=== PATIENT | female | born 1945 | race Caucasian/White ===

== ENCOUNTER 2022-04-21 19:48 | Emergency (ER) | payer OTHER ==
[2022-04-21] MEDS ORDERED: ACETAMINOPHEN 325 MG TABLET (FP) PO ONE (20:04)
[2022-04-21] MEDS ORDERED: ACETAMINOPHEN 325 MG TABLET (FP) ONE (20:04)
[2022-04-21 20:12] VITALS: BP 156/70; PULSE 64; TEMP 97.8; BMI 23.4
== END 2022-04-21 21:09 | disposition home or self-care (01) ==
LOC: FER 19:48
DX: M54.89 Other dorsalgia (principal)
CPT/HCPCS: 99283-25

== ENCOUNTER 2022-11-27 06:08 | Emergency (ER) | payer OTHER ==
[2022-11-27 06:19] VITALS: BP 157/64; PULSE 72; RESP 16; TEMP 98.6; BMI 22.8
== END 2022-11-27 09:50 | disposition home or self-care (01) ==
LOC: FER 06:08 → SUPCPDRO 06:08 → FER 09:50
DX: M79.604 Pain in right leg (principal); W19.XXXA Unspecified fall, initial encounter
CPT/HCPCS: 99282-25

== ENCOUNTER 2022-12-14 00:05 | Emergency (ER) | payer OTHER ==
[2022-12-14 00:31] VITALS: TEMP 97.9; BMI 24.5
[2022-12-14 06:53] VITALS: BP 153/68; PULSE 73; RESP 16
== END 2022-12-14 09:15 ==
LOC: FER 00:05
DX: Z04.3 Encounter for examination and observation following other accident (principal)
CPT/HCPCS: 70450-TC; 72125-TC; 99284-25

== ENCOUNTER 2022-12-27 10:08 | Emergency (ER) | payer OTHER ==
[2022-12-27 10:29] VITALS: BP 138/72; PULSE 70; RESP 16; TEMP 98.6; BMI 24.5
[2022-12-27 12:08] LABS: EPITHELIAL CELLS FEW /hpf
== END 2022-12-27 13:09 | disposition home or self-care (01) ==
LOC: SUPCPDRO 10:08 → FER 10:08
DX: K59.00 Constipation, unspecified (principal)
CPT/HCPCS: 74018-TC-FY; 81003; 81015; 87086; 87186; 99284-25

== ENCOUNTER 2022-12-29 01:51 | Emergency (ER) | payer OTHER ==
[2022-12-29 02:02] VITALS: TEMP 97.7; BMI 28.3
[2022-12-29 06:41] VITALS: PULSE 88; RESP 17
[2022-12-29 06:52] VITALS: BP 152/82
== END 2022-12-29 08:40 | disposition home or self-care (01) ==
LOC: FER 01:51
DX: Z04.3 Encounter for examination and observation following other accident (principal)
CPT/HCPCS: 70450-TC; 72125-TC; 99284-25

== ENCOUNTER 2024-05-03 11:00 | Inpatient (IN) | payer OTHER ==
[2024-05-03 11:48] VITALS: BMI 33.0
[2024-05-03 13:02] LABS: INR 0.91 (0.83-1.09); PROTHROMBIN TIME (PATIENT) 10.4 SEC (9.7-13.0)
[2024-05-03 13:04] LABS: ACTIVATED PTT 33.1 SECONDS (25.2-36.5)
[2024-05-03 13:05] LABS: HEMATOCRIT 38.5 % (32.4-45.2); HEMOGLOBIN 12.3 G/dL (10.7-15.3); MCH 30.6 pg (25.7-33.7); MCHC 32.1 g/dl (32.0-36.0); MEAN CELL VOLUME 95.5 fl (80-96); RBC 4.03 10^6/uL (3.60-5.2); RDW 14.8 % (11.6-15.6); WHITE BLOOD COUNT 8.3 10^3/uL (4.0-10.8)
[2024-05-03 13:11] LABS: ALBUMIN 4.2 g/dl (3.4-5.0); BILIRUBIN,TOTAL 1.5 mg/dl (0.2-1); CALCIUM 9.5 mg/dl (8.5-10.1); CREATININE 0.8 mg/dl (0.6-1.3); POTASSIUM 3.8 mmol/L (3.5-5.1); TOT PROT 6.8 g/dl (6.4-8.2)
[2024-05-03 13:24] LABS: PLATELET ESTIMATE ADEQUATE
[2024-05-03] MEDS: ACETAMINOPHEN 1000 MG/100 ML BAG IVPB ONE (14:25)
[2024-05-03] MEDS ORDERED: ACETAMINOPHEN INJECTION 100 ML IVPB ONE (14:26)
[2024-05-03] MEDS: OLANZapine 5 MG TABLET PO SCH (21:28)
[2024-05-03] MEDS: ACETAMINOPHEN 1000 MG/100 ML BAG IVPB PRN (21:28)
[2024-05-03] MEDS: ROSUVASTATIN CA 5 MG TABLET PO SCH (21:28)
[2024-05-03] MEDS ORDERED: MEMANTINE HCL 5 MG TABLET (UD) PO SCH (22:00)
[2024-05-04] MEDS: LEVOTHYROXINE NA 100 MCG TABLET (FP) PO SCH (06:27)
[2024-05-04 08:10] LABS: INR 1.03 (0.83-1.09); PROTHROMBIN TIME (PATIENT) 11.7 SEC (9.7-13.0)
[2024-05-04 08:51] LABS: HEMATOCRIT 35.9 % (32.4-45.2); HEMOGLOBIN 11.4 G/dL (10.7-15.3); MCH 30.1 pg (25.7-33.7); MCHC 31.7 g/dl (32.0-36.0); MEAN PLT VOLUME 9.5 fl (7.5-11.1); PLATELET COUNT 171.4 10^3/uL (134-434); RBC 3.78 10^6/uL (3.60-5.2); RDW 14.4 % (11.6-15.6); WHITE BLOOD COUNT 7.9 10^3/uL (4.0-10.8)
[2024-05-04 09:09] LABS: ALBUMIN 3.9 g/dl (3.4-5.0); BILIRUBIN,TOTAL 1.9 mg/dl (0.2-1); CALCIUM 9.1 mg/dl (8.5-10.1); CREATININE 0.7 mg/dl (0.6-1.3); MAGNESIUM 1.9 mg/dL (1.8-2.4); PHOSPHOROUS 3.7 (2.5-4.9); POTASSIUM 3.7 mmol/L (3.5-5.1); TOT PROT 6.3 g/dl (6.4-8.2)
[2024-05-04] MEDS: CITALOPRAM HYDROBROMIDE 20 MG TABLET PO SCH (09:36)
[2024-05-04] MEDS: EZETIMIBE 10 MG TABLET (FP) PO SCH (09:36)
[2024-05-04] MEDS: CYANOCOBALAMIN 1,000 MCG TABLET (FP) PO SCH (09:36)
[2024-05-04] MEDS: MEMANTINE HCL 5 MG TABLET (UD) PO SCH (09:36)
[2024-05-04] MEDS: LISINOPRIL 10 MG TABLET PO SCH (09:36)
[2024-05-04] MEDS: CHOLECALCIFEROL (VIT D3) 1,000 UNIT (25 MCG) TABLET PO SCH (09:36)
[2024-05-04] MEDS ORDERED: PATIENT'S OWN MEDICATION (NON-FORMULARY) (Galantamine Hbr [Galantamine Er] 8 MG Cap24h.Pel PO SCH (10:00)
[2024-05-04] MEDS ORDERED: VANCOMYCIN 1,000 MG VIAL (RESTRICTED TO ID ONLY) ONE (10:39)
[2024-05-04] MEDS ORDERED: ceFAZolin SODIUM 1 GM VIAL ONE (10:39)
[2024-05-04] MEDS ORDERED: LACTATED RINGERS SOLUTION 1,000 ML IV SCH ×2 (11:00→12:00)
[2024-05-04] MEDS ORDERED: PROPOFOL 20 ML ONE (11:11)
[2024-05-04] MEDS ORDERED: SUCCINYLCHOLINE CHLORIDE 200 MG/10 ML SYRINGE ONE (11:12)
[2024-05-04] MEDS ORDERED: BUPIVACAINE HCL/PF 0.5% (5MG/ML) 10 ML VIAL ONE (11:23)
[2024-05-04] MEDS ORDERED: ONDANSETRON 4 MG/2 ML VIAL IVPUSH PRN (11:59)
[2024-05-04] MEDS: VANCOMYCIN 1,000 MG VIAL (RESTRICTED TO ID ONLY) IVPB ONE (12:16)
[2024-05-04] MEDS ORDERED: ACETAMINOPHEN 1000 MG/100 ML BAG IVPB PRN (12:33)
[2024-05-04] MEDS: LACTATED RINGERS SOLUTION 1,000 ML IV SCH (13:30)
[2024-05-04] MEDS ORDERED: ACETAMINOPHEN 325 MG TABLET (FP) PO PRN (19:44)
[2024-05-04] MEDS ORDERED: CEFAZOLIN SODIUM 2 GM in DEXTROSE 5%-WATER 100 ML IVPB SCH (20:00)
[2024-05-04] MEDS: CEFAZOLIN SODIUM 2 GM in DEXTROSE 5%-WATER 100 ML IVPB SCH (20:55)
[2024-05-04] MEDS: ROSUVASTATIN CA 5 MG TABLET PO SCH (21:06)
[2024-05-04] MEDS: OLANZapine 5 MG TABLET PO SCH (21:06)
[2024-05-05] MEDS: LEVOTHYROXINE NA 100 MCG TABLET (FP) PO SCH (07:05)
[2024-05-05] MEDS ORDERED: ASPIRIN 325 MG TABLET PO SCH (08:00)
[2024-05-05] MEDS: ASPIRIN 325 MG TABLET PO SCH (08:09)
[2024-05-05 08:35] LABS: HEMATOCRIT 35.6 % (32.4-45.2); HEMOGLOBIN 11.3 G/dL (10.7-15.3); MCH 30.2 pg (25.7-33.7); MCHC 31.6 g/dl (32.0-36.0); MEAN CELL VOLUME 95.7 fl (80-96); MEAN PLT VOLUME 9.4 fl (7.5-11.1); PLATELET COUNT 165.4 10^3/uL (134-434); RBC 3.72 10^6/uL (3.60-5.2); RDW 14.9 % (11.6-15.6); WHITE BLOOD COUNT 9.6 10^3/uL (4.0-10.8)
[2024-05-05 08:59] LABS: CALCIUM 8.9 mg/dl (8.5-10.1); CREATININE 0.8 mg/dl (0.6-1.3); POTASSIUM 3.8 mmol/L (3.5-5.1)
[2024-05-05] MEDS: ACETAMINOPHEN 1000 MG/100 ML BAG IVPB PRN (10:00)
[2024-05-05] MEDS ORDERED: GALANTAMINE HBR 16 MG PO SCH (10:00)
[2024-05-05] MEDS: MEMANTINE HCL 5 MG TABLET (UD) PO SCH (10:03)
[2024-05-05] MEDS: CYANOCOBALAMIN 1,000 MCG TABLET (FP) PO SCH (10:03)
[2024-05-05] MEDS: EZETIMIBE 10 MG TABLET (FP) PO SCH (10:03)
[2024-05-05] MEDS: CHOLECALCIFEROL (VIT D3) 1,000 UNIT (25 MCG) TABLET PO SCH (10:03)
[2024-05-05] MEDS: CITALOPRAM HYDROBROMIDE 20 MG TABLET PO SCH (10:03)
[2024-05-05] MEDS: POLYETHYLENE GLYCOL (HEALTHYLAX) 3350 17 GM PACKET PO SCH (10:04)
[2024-05-05] MEDS: LISINOPRIL 10 MG TABLET PO SCH (10:04)
[2024-05-05] MEDS: ACETAMINOPHEN 1000 MG/100 ML BAG IVPB SCH (10:15)
[2024-05-06 08:58] LABS: HEMATOCRIT 30.7 % (32.4-45.2); HEMOGLOBIN 9.5 G/dL (10.7-15.3); MCH 29.8 pg (25.7-33.7); MCHC 30.9 g/dl (32.0-36.0); MEAN CELL VOLUME 96.1 fl (80-96); RBC 3.19 10^6/uL (3.60-5.2); RDW 15.3 % (11.6-15.6); WHITE BLOOD COUNT 7.7 10^3/uL (4.0-10.8)
[2024-05-06 09:03] LABS: MEAN PLT VOLUME 9.7 fl (7.5-11.1); PLATELET COUNT 110.3 10^3/uL (134-434)
[2024-05-06 09:45] LABS: ANION GAP 8 mmol/L (4-13); CALCIUM 8.5 mg/dl (8.5-10.1); CHLORIDE 105 mmol/L (98-107); CO2 28 mmol/L (21-32); CREATININE 0.9 mg/dl (0.6-1.3); GLUCOSE,RANDOM 89 mg/dl (74-106); MAGNESIUM 1.9 mg/dL (1.8-2.4); PHOSPHOROUS 2.7 (2.5-4.9); SODIUM 141 mmol/L (136-145)
[2024-05-06] MEDS: ACETAMINOPHEN 325 MG TABLET (FP) PO SCH (22:22)
[2024-05-07] MEDS ORDERED: REFRIGERATED ANITBIOTICS ONE ×2 (14:03→14:16)
[2024-05-09 09:36] LABS: HEMATOCRIT 30.4 % (32.4-45.2); HEMOGLOBIN 9.9 GM/dL (10.7-15.3); MCH 30.8 pg (25.7-33.7); MCHC 32.8 g/dl (32.0-36.0); MEAN PLT VOLUME 8.5 fl (7.5-11.1); PLATELET COUNT 208 10^3/uL (134-434); RBC 3.23 M/mm3 (3.60-5.2); RDW 15.9 % (11.6-15.6); WHITE BLOOD COUNT 5.7 K/mm3 (4.0-10.0)
[2024-05-10 02:27] VITALS: RESP 17
[2024-05-10 14:32] VITALS: BP 133/51; PULSE 73; TEMP 97.8
== END 2024-05-10 16:50 | DRG 521 ==
LOC: FER 11:00 → FM/S 13:37
PROVIDERS: ADMIT Internal Medicine
PROC: 0SRS0JZ Replacement of Left Hip Joint, Femoral Surface with Synthetic Substitute, Open Approach (ICD-10-PCS; principal; 2024-05-04 11:49)
DX: S72.142A Displaced intertrochanteric fracture of left femur, initial encounter for closed fracture (principal); G93.41 Metabolic encephalopathy; F03.90 Unspecified dementia, unspecified severity, without behavioral disturbance, psychotic disturbance, mood disturbance, and anxiety; I10 Essential (primary) hypertension; E78.5 Hyperlipidemia, unspecified; E03.9 Hypothyroidism, unspecified; W18.30XA Fall on same level, unspecified, initial encounter; Y92.098 Other place in other non-institutional residence as the place of occurrence of the external cause; R26.81 Unsteadiness on feet
CPT/HCPCS: 36415; 70450-TC; 71045-TC-FY; 72125-TC; 72170-TC-FY; 73502-TC-LT-FY; 80048; 80053; 83735; 84100; 84484; 85025; 85027; 85610; 85730; 86850; 86900; 86901; 87635; 88305-TC; 88311-TC; 93005; 94760; 97116-GP; 97161-GP; 99285-25; C1776; J0131